=== PATIENT | female | born 1950 | race African-American/Black ===

== ENCOUNTER 2020-11-08 14:39 | Emergency (ER) | payer MEDICARE ==
[~2020-11-08] VITALS: Ht 162.6 cm; Wt 105.9 kg
[2020-11-08] MEDS ORDERED: K-TA10TA2 PO (14:53)
[2020-11-08] MEDS ORDERED: TRAM1CAP15 PO (14:53)
[2020-11-08] MEDS ORDERED: PREG25CA PO (14:53)
[2020-11-08] MEDS ORDERED: TIZA2CAP PO (14:53)
[2020-11-08] MEDS ORDERED: METH5INJ SC (14:53)
[2020-11-08] MEDS ORDERED: FOLI400T13 PO (14:53)
[2020-11-08] MEDS ORDERED: CORT5TAB2 PO (14:53)
[2020-11-08] MEDS ORDERED: ETAN50SY SC (14:53)
[2020-11-08] MEDS ORDERED: HYDR-4467 PO (14:53)
[2020-11-08] MEDS ORDERED: DULO30CA9 PO (14:53)
[2020-11-08] MEDS ORDERED: PROAAER10 INH (16:06)
[2020-11-08] MEDS ORDERED: SING10TA32 PO (16:06)
[2020-11-08] MEDS ORDERED: PLAQ200T4 PO (16:06)
[2020-11-08] MEDS ORDERED: XARE10TA PO (16:06)
[2020-11-08] MEDS ORDERED: CARD120C3 PO (16:06)
[2020-11-08] MEDS ORDERED: PRAV20TA2 PO (16:06)
[2020-11-08] MEDS ORDERED: NEOSPORIN OINT 0.9 GM PKT TOP ONE (17:35)
[2020-11-08] MEDS ORDERED: LIDOCAINE 1% MDV 20ML VIAL SC ONE (17:35)
[2020-11-08 18:35] VITALS: BP 136/91
--- NOTE | 2020-11-08 20:35 | REP ---
INDICATION: fall, avulsion finger distal, #4. COMPARISON: None. TECHNIQUE: Four views of the left ring finger are obtained. FINDINGS: Four views of the left ring finger demonstrate soft tissue swelling and irregularity at the distal tuft consistent with the history of laceration. No opaque foreign body is seen. No fracture is noted.. . . IMPRESSION: Soft tissue swelling at the distal phalanx of the ring finger. No fracture or opaque foreign body seen.. <Electronically signed by Damion Strickland > 11/08/20
== END 2020-11-08 18:40 | disposition home or self-care (01) ==
LOC: M ED 14:39
DX: S61.215A Laceration without foreign body of left ring finger without damage to nail, initial encounter (principal); W26.8XXA Contact with other sharp object(s), not elsewhere classified, initial encounter; Y92.830 Public park as the place of occurrence of the external cause; J44.9 Chronic obstructive pulmonary disease, unspecified; E27.40 Unspecified adrenocortical insufficiency; Z79.899 Other long term (current) drug therapy; Z88.0 Allergy status to penicillin; Z88.1 Allergy status to other antibiotic agents; Z88.2 Allergy status to sulfonamides